=== PATIENT | male | born 1985 | race Caucasian/White ===

== ENCOUNTER 2023-06-24 09:30 | Outpatient (CLI) | payer BC | END 2023-06-24 09:31 | disposition home or self-care (01) | LOC: ULT 09:30 | PROVIDERS: ATTEND Physician Assistant | DX: R74.8 Abnormal levels of other serum enzymes (principal) | CPT/HCPCS: 76705 ==

== ENCOUNTER 2024-06-01 07:31 | Day surgery (SDC) | payer BC ==
[2024-06-01 07:52] LABS: #Basophils Less than 0.03 10x3/uL (0.0-0.2); %Basophils 0.3 % (0.0-1.0); %Eosinophils 1.8 % (0.0-10.0); %Lymphocytes 26.3 % (21.0-51.0); %Neutrophils 64.3 % (42.0-75.0); Hematocrit 43.7 % (42.0-52.0); Mean Corpuscular HGB CONC 34.3 g/dL (32.0-36.0); Mean Corpuscular Hemoglobin 28.8 pg (27.0-31.0); Mean Corpuscular Volume 83.9 fL (78.0-98.0); Mean Platelet Volume 11.1 fL (7.4-10.4); Platelet Count 181 10x3/uL (130-400); RBC Distribution Width 12.6 % (11.5-14.5); Red Blood Cell (RBC) Count 5.21 mill/uL (4.70-6.10)
[2024-06-01 08:18] LABS: PTT 27.5 sec (22.9-36.1); Prothrombin Time 13.5 sec (12.0-14.7)
[2024-06-01] MEDS ORDERED: fentaNYL 50 mcg/mL 1 mL Vial ONE (08:47)
[2024-06-01] MEDS ORDERED: Lidocaine 1% w/Epinephrine 1:100K 20 ML VIAL ONE (08:48)
[2024-06-01] MEDS ORDERED: Midazolam HCl 2 mg/2 ml Vial ONE (08:48)
[2024-06-01] MEDS ORDERED: Sodium Bicarbonate 2.5 MEQ/5 ML SDV ONE (08:48)
[2024-06-01 09:15] VITALS: BMI 27.0
[2024-06-01 09:30] VITALS: BP 119/85; TEMP 97.1
[2024-06-01] MEDS ORDERED: FLU (Fluarix Triv) TS24-25(6MOS UP)/PF 45 MCG/0.5 ML Syringe IM ONE (14:00)
== END 2024-06-01 14:22 | disposition home or self-care (01) ==
LOC: ULT 07:31
PROVIDERS: ATTEND Internal Medicine Gastroenterology
PROC: 0FB13ZX Excision of Right Lobe Liver, Percutaneous Approach, Diagnostic (ICD-10-PCS; principal; 2024-06-01)
DX: K75.9 Inflammatory liver disease, unspecified (principal); K62.5 Hemorrhage of anus and rectum; K59.00 Constipation, unspecified
CPT/HCPCS: 47000; 76942; 85025; 85610; 85730; 88307; 88313; 99152; J2250; J3010